=== PATIENT | female | born 1985 | race Caucasian/White ===

== ENCOUNTER 2019-09-01 11:37 | Emergency (ER) | payer OTHER, MEDICAID ==
[~2019-09-01] VITALS: Ht 170.2 cm; Wt 65.3 kg
[~2019-09-01 11:37] MED LIST: AFRIN15 ML NS; BACTRIM DS TAB1 EACH PO; CIPROFLOXACIN500 M1 PO; DOXYCYCLINE 10100 MG PO; FLAGYL500 MG PO; GUAIFENESIN400 MG PO; MEDROLDOSEPACK PO; NAPROSYN375 MG; NOHOMEMEDICATIONS; PHENERGAN 25 MG25 M1 PO; PYRIDIUM200 MG PO; TESSALON PERLE100 MG PO; TRAMADOL 50 MG50 MG PO; ULTRAM 50MG TAB50 MG PO; ZITHROMAX TRI-500 MG PO; ZOFRAN 4 MG ORAL4 M1 DIS; ZPAK PO
[2019-09-01 12:20] LABS: URINE BILIRUBIN NEGATIVE (Negative); URINE BLOOD 2+ (Negative); URINE CLARITY CLEAR; URINE COLOR YELLOW; URINE GLUCOSE-RANDOM NEGATIVE (Negative); URINE KETONES NEGATIVE (Negative); URINE PROTEIN 1+ (Negative); URINE SPECIFIC GRAVITY 1.025 (1.005-1.030); URINE UROBILINOGEN 0.2 E.U./dl (0.2-1.0)
[2019-09-01 12:21] LABS: URINE LEUKOCYTES-REFLEX 2+ (Negative); URINE NITRITE-REFLEX POSITIVE (Negative)
[2019-09-01 12:26] LABS: BACTERIA-REFLEX >30 Many /HPF (None Seen); CASTS None Seen /LPF (None Seen); CRYSTALS None Seen /LPF (None Seen); MUCUS 0-3 Light strn/LPF (None Seen); SQUAMOUS 0-3 Few /LPF (0-3); URINE RBC 3-10 Few /HPF (0-2)
[2019-09-01] MEDS ORDERED: ONDANSETRON ODT4 MG PO (12:51)
[2019-09-01] MEDS ORDERED: BACTRIM DS TAB1 EACH PO (12:51)
[2019-09-01 13:41] VITALS: BP 100/60
== END 2019-09-01 13:41 | disposition home or self-care (01) ==
LOC: M.ERS 11:37
PROVIDERS: Physician Assistant
DX: N39.0 Urinary tract infection, site not specified (principal); R11.2 Nausea with vomiting, unspecified; F17.210 Nicotine dependence, cigarettes, uncomplicated; Z98.890 Other specified postprocedural states

== ENCOUNTER 2020-06-04 15:14 | Emergency (ER) | payer OTHER, MEDICAID ==
[~2020-06-04] VITALS: Ht 170.2 cm; Wt 65.8 kg
[~2020-06-04 15:14] MED LIST changes: +ONDANSETRON ODT4 MG PO
[2020-06-04 16:28] LABS: INFLUENZA A ANTIGEN Negative (Negative); INFLUENZA B ANTIGEN Negative (Negative)
[2020-06-04] MEDS ORDERED: TESSALON PERLE100 MG PO (17:11)
[2020-06-04] MEDS ORDERED: ONDANSETRON HCL4 M2 PO (17:11)
[2020-06-04] MEDS ORDERED: APAP W/CODEINE1 TA2 PO (17:11)
[2020-06-04 17:47] VITALS: BP 108/73
== END 2020-06-04 17:47 | disposition home or self-care (01) ==
LOC: M.ERS 15:14
PROVIDERS: Physician Assistant
DX: U07.1 COVID-19 (principal); F17.210 Nicotine dependence, cigarettes, uncomplicated